=== PATIENT | female | born 2000 | race Caucasian/White ===

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

== ENCOUNTER 2020-06-12 09:19 | Emergency (ER) | payer MEDICAID ==
[2020-06-12] MEDS ORDERED: NORMAL SALINE 1000 ML 1,000 ML IV ONE (10:25)
[2020-06-12] MEDS ORDERED: METHYLPREDNISOLONE INJ 125 MG/2 ML SDV IV ONE (10:26)
[2020-06-12] MEDS ORDERED: DIPHENHYDRAMINE HCL 50 MG/ML VIAL IV ONE (10:26)
[2020-06-12] MEDS ORDERED: FAMOTIDINE INJ/PF 20 MG/2 ML SDV IV ONE (10:27)
--- NOTE | 2020-06-12 12:40 | ER Document Report ---
Entered by SEBAS ESPINAL SCRIBE 06/12/20 1052 Acting as scribe for:WILMER QUIROZ MD ED General - General Chief Complaint: Rash Stated Complaint: RASH,LEFT LEG PAIN Time Seen by Provider: 06/12/20 10:17 Information source: Patient Notes: This 20 year old female patient presents to the emergency department today with complaints of itching from her rash. Patient states she was doing yard work x5 days ago when a rash started to show up on her left arm. Patient states it was not until x3 days ago that she realized the rash present on all of her extremities and face. Patient states there was some swelling under her left eye x2 days ago, and it has gone away. Denies pain in her eye or vision changes. Patient states calamine, Cortizone, and Benadryl have not provided relief. TRAVEL OUTSIDE OF THE [place] IN LAST 30 DAYS: No - Related Data Allergies/Adverse Reactions: No Known Allergies Allergy (Verified 06/12/20 10:59) Home Medications: Isibloom Past Medical History - General Information source: Patient - Social History Smoking Status: Never Smoker Cigarette use (# per day): No Chew tobacco use (# tins/day): No Frequency of alcohol use: None Drug Abuse: None Lives with: Family Family History: Reviewed & Not Pertinent Pulmonary Medical History: Reports: Hx Bronchitis Past Surgical History: Reports: Hx Adenoidectomy, Hx Oral Surgery - wisdom teeth, Hx Tonsillectomy - Immunizations Immunizations up to date: Yes Hx Diphtheria, Pertussis, Tetanus Vaccination: Yes Review of Systems - Review of Systems Constitutional: No symptoms reported EENT: See HPI, Other - Swelling under L eye, No vision changes. denies: Eye pain Cardiovascular: No symptoms reported Respiratory: No symptoms reported Gastrointestinal: No symptoms reported Genitourinary: No symptoms reported Female Genitourinary: No symptoms reported Musculoskeletal: No symptoms reported Skin: See HPI, Rash - Face, All extremities Hematologic/Lymphatic: No symptoms reported Neurological/Psychological: No symptoms reported -: Yes All other systems reviewed and negative Physical Exam - Vital signs Vitals: Temp Pulse Resp BP Pulse Ox 98.8 F 125 H 20 130/74 H 97 06/12/20 09:40 06/12/20 09:40 06/12/20 09:40 06/12/20 09:40 06/12/20 09:40 - General General appearance: Appears well, Alert - HEENT Head: Normocephalic, Atraumatic Eyes: Normal Pupils: PERRL - Respiratory Respiratory status: No respiratory distress Chest status: Nontender Breath sounds: Normal Chest palpation: Normal - Cardiovascular Rhythm: Regular Heart sounds: Normal auscultation Murmur: No - Abdominal Inspection: Normal Distension: No distension Bowel sounds: Normal Tenderness: Nontender - Extremities General upper extremity: Normal inspection. No: Edema General lower extremity: Normal inspection. No: Edema - Neurological Neuro grossly intact: Yes Cognition: Normal Orientation: AAOx4 Speech: Normal - Psychological Associated symptoms: Normal affect, Normal mood - Skin Skin Temperature: Warm Skin Moisture: Dry Notes: Diffuse rash on face, neck, anterior/posterior chest and upper/lower extremities. Rash is maculopapular and weeping. Course - Re-evaluation Re-evalutation: 06/12/20 12:26 Patient reports that she feels some better at this point time. Decreased rash as well as decrease itching. - Vital Signs Vital signs: Temp Pulse Resp BP Pulse Ox 98.8 F 125 H 20 130/74 H 97 06/12/20 09:40 06/12/20 09:40 06/12/20 09:40 06/12/20 09:40 06/12/20 09:40 06/12/20 12:27 Vital signs stable Discharge - Discharge Clinical Impression: Contact dermatitis due to plant Condition: Stable Disposition: HOME, SELF-CARE Additional Instructions: You have a rash due to contact with plants most likely poison carl. We have written prescriptions for you to receive Medrol Dosepak which is a steroid taper over the next 6 days. Also we wrote prescriptions for you to receive triamcinolone cream which is a steroid prescription for cream to apply liberally to locations of your rash. There is [id number] medication that also will be helpful for you and that is taken Pepcid 20 mg twice a day for the next 7 to 10 days. Also Benadryl 25 mg 1 every 6 hours if needed for itch as well this may make you sleepy. As we discussed recommended that you also treat not just yourself but the environment as well so therefore every day your close your linen your pillowcase and bedding all goes in a hot wash on a daily basis until the rash is cleared. Prescriptions: Triamcinolone Acetonide [Aristocort 0.1% Ointment] 1 applic TP BID #60 gm Methylprednisolone [Medrol Dosepack (4 mg/Tab) 21 Tab/Dosepak] 4 mg PO ASDIR PRN #21 tab.ds.pk PRN Reason: I personally performed the services described in the documentation, reviewed and edited the documentation which was dictated to the scribe in my presence, and it accurately records my words and actions.
[2020-06-12 12:56] VITALS: BP 122/74
== END 2020-06-12 12:56 | disposition home or self-care (01) ==
LOC: ER 09:19
DX: L25.5 Unspecified contact dermatitis due to plants, except food (principal); R21 Rash and other nonspecific skin eruption; M79.605 Pain in left leg; M79.89 Other specified soft tissue disorders
CPT/HCPCS: 99282; 96361; 96374; 96375; J1200; J2930; J7030; S0028